=== PATIENT | male | born 1980 | race Caucasian/White ===

== ENCOUNTER 2022-04-03 12:34 | Outpatient (CLI) | payer OTHER, SELFPAY ==
[2022-04-03 13:32] LABS: Albumin* 4.3 g/dL (3.3-5.0); Chloride* 104 mmol/L (96-114); Potassium* 4.9 mmol/L (3.6-5.1); Sodium* 139 mmol/L (135-149)
[2022-04-03 13:34] LABS: Bilirubin Total* 0.5 mg/dL (0.1-1.5); Creatinine* 1.1 mg/dL (0.5-1.5); Estimated Glomerular Filt Rate 86 ml/min
[2022-04-03 13:35] LABS: Alanine Aminotransferase* 41 U/L (4-50); Alkaline Phosphatase* 125 U/L (40-150); Aspartate Amino Transferase* 32 U/L (12-35); Blood Urea Nitrogen* 17 mg/dL (5-24); Calcium* 9.3 mg/dL (8.4-10.6); Carbon Dioxide* 28 mmol/L (20-32); Glucose* 100 mg/dL (60-115); Total Protein* 7.1 g/dL (6.0-8.3)
[2022-04-03 13:58] LABS: Vitamin D 25 Hydroxy* 53 ng/mL (30-80)
== END 2022-04-03 12:35 | disposition home or self-care (01) ==
PROVIDERS: PCP Physician Assistant Medical; Visit Provider Nurse Practitioner Family
DX: Z79.899 Other long term (current) drug therapy (principal); F90.9 Attention-deficit hyperactivity disorder, unspecified type; F32.A Depression, unspecified; F98.8 Other specified behavioral and emotional disorders with onset usually occurring in childhood and adolescence
CPT/HCPCS: 80053; 82306; 84443

== ENCOUNTER 2022-09-17 10:43 | Outpatient (CLI) | payer OTHER, SELFPAY ==
[2022-09-17 21:41] LABS: Cholesterol* 198 mg/dL (90-199); Glucose* 87 mg/dL (60-115); Triglycerides* 151 mg/dL (40-149)
[2022-09-17 21:42] LABS: HDL Cholesterol* 60 mg/dL (>=40); LDL Cholesterol Calculated 108 mg/dL (<100)
== END 2022-09-17 10:44 | disposition home or self-care (01) ==
PROVIDERS: PCP Physician Assistant Medical; Visit Provider Physician Assistant Medical
DX: Z00.00 Encounter for general adult medical examination without abnormal findings (principal); R53.83 Other fatigue; Z13.6 Encounter for screening for cardiovascular disorders; Z13.1 Encounter for screening for diabetes mellitus
CPT/HCPCS: 80061; 82947